=== PATIENT | male | born 1975 | race Caucasian/White ===

== ENCOUNTER → 2018-01-11 13:53 | Outpatient (CLI) | payer OTHER, SELFPAY ==
[2018-01-11 18:41] LABS: Basophils % 0.5 % (0.1-2.0); Eosinophils # 0.1 K/mm3 (0.0-0.4); Eosinophils % 1.4 % (0.1-12.0); Hematocrit 50.5 % (42.0-52.0); Lymphocytes # 2.3 K/mm3 (0.7-4.5); Lymphocytes % 27.9 K/mm3 (10-50); Mean Corpuscular HGB Conc 33.6 g/dL (31.8-35.4); Mean Corpuscular Hemoglobin 30.5 pg (27.0-31.2); Mean Corpuscular Volume 90.7 fl (80-94); Mean Platelet Volume 9.3 fl (7.4-10.4); Monocytes # 0.7 K/mm3 (0.1-1.0); Monocytes % 8.1 % (1.7-9.3); Platelet Count 252 K/mm3 (142-424); Red Blood Count 5.56 M/mm3 (4.60-6.20); White Blood Count 8.1 K/mm3 (4.8-10.8)
[2018-01-11 19:03] LABS: Amphetamine/Metha Screen,Urine Negative ng/mL (<1000); Barbiturates Screen,Urine Negative ng/mL (<200); Benzodiazepines Screen,Urine Negative ng/mL (<200); Cannabinoid Screen,Urine Positive ng/mL (<50); Cocaine Screen,Urine Negative ng/mL (<300); Methadone Screen,Urine Negative ng/mL (<300); Opiate Screen,Urine Positive ng/mL (<300); Phencyclidine Screen,Urine Negative ng/mL (<25)
[2018-01-11 19:11] LABS: Alanine Aminotransferase 38 U/L (12-78); Albumin Level 4.3 gm/dL (3.4-5.0); Albumin/Globulin Ratio 1.3 (1.1-1.8); Alkaline Phosphatase 95 U/L (46-116); Anion Gap 13.5 mEq/L (5-15); Aspartate Amino Transferase 20 U/L (15-37); Bilirubin,Total 1.8 mg/dL (0.2-1.0); Blood Urea Nitrogen 11 mg/dL (7-18); Calcium 9.2 mg/dL (8.5-10.1); Carbon Dioxide 28 mmol/L (21.0-32.0); Chloride 99 mmol/L (98-107); Chol/HDL Ratio 5.8 (1-3.5); Cholesterol 276 mg/dL (140-200); Creatinine,Serum 0.81 mg/dL (0.70-1.30); Estimated Glomerular Filt Rate 105 ml/min (>60); GFR (African American) 127 ML/MIN (>60); Globulin 3.4 gm/dl (1.3-3.2); Glucose 94 mg/dL (74-106); HDL Cholesterol 48 mg/dL (27-67); LDL Cholesterol 194 mg/dL (0-130); Potassium 4.5 mmoL/L (3.5-5.1); Sodium 136 mmol/L (136-145); T4 (Thyroxine) 7.9 ug/dl (4.7-13.3); Thyroid Stimulating Hormone 0.89 uIU/ml (0.358-3.740); Total Protein,Serum 7.7 gm/dL (6.4-8.2); Triglycerides 168 mg/dL (30-200); VLDL Cholesterol 34 mg/dL (0-40)
== END ==
PROVIDERS: Visit Provider Emergency Medicine
DX: Z79.899 Other long term (current) drug therapy (principal); I10 Essential (primary) hypertension
CPT/HCPCS: 80053; 80061; 80305; 84436; 84443; 85025

== ENCOUNTER → 2018-02-12 17:56 | Outpatient (CLI) | payer OTHER, SELFPAY ==
[2018-02-12 18:28] LABS: Amphetamine/Metha Screen,Urine Negative ng/mL (<1000); Barbiturates Screen,Urine Negative ng/mL (<200); Benzodiazepines Screen,Urine Negative ng/mL (<200); Cannabinoid Screen,Urine Positive ng/mL (<50); Cocaine Screen,Urine Negative ng/mL (<300); Methadone Screen,Urine Negative ng/mL (<300); Opiate Screen,Urine Negative ng/mL (<300); Phencyclidine Screen,Urine Negative ng/mL (<25)
== END ==
PROVIDERS: Visit Provider Nurse Practitioner Family
DX: Z79.899 Other long term (current) drug therapy (principal)
CPT/HCPCS: 80305

== ENCOUNTER → 2018-03-13 18:39 | Outpatient (CLI) | payer OTHER, SELFPAY ==
[2018-03-13 22:38] LABS: Amphetamine/Metha Screen,Urine Negative ng/mL (<1000); Barbiturates Screen,Urine Negative ng/mL (<200); Benzodiazepines Screen,Urine Negative ng/mL (<200); Cannabinoid Screen,Urine Positive ng/mL (<50); Cocaine Screen,Urine Negative ng/mL (<300); Methadone Screen,Urine Negative ng/mL (<300); Opiate Screen,Urine Positive ng/mL (<300); Phencyclidine Screen,Urine Negative ng/mL (<25)
== END ==
PROVIDERS: Visit Provider Emergency Medicine
DX: Z79.899 Other long term (current) drug therapy (principal)
CPT/HCPCS: 80305

== ENCOUNTER → 2018-03-14 10:33 | Outpatient (CLI) | payer OTHER, SELFPAY ==
--- NOTE | 2018-03-14 10:40 | MR_ITS ---
MR lumbar spine wo con, MR 3-d myelogram/MRCP HISTORY: PT states low back pain. Bilateral leg pain. ITS.REASON: back pain ORDERING PHYSICIAN: Alexandre Pozo MD PATIENT AGE: 42 years Comparison: MRI 03/13/16 TECHNIQUE: Standard multiplanar multiecho sequences are performed without contrast. 3-D MIP and myelographic images are also rendered and reviewed FINDINGS: There is normal alignment. The spinal cord ends at the L1-L2 level. T12-L1 and L1-L2 have an unremarkable appearance. L2-L3: Mild disc desiccation with mild facet and ligamentum flavum hypertrophy with mild bilateral lateral recess and foraminal narrowing slightly greater on the left. Not significant change. L3-L4: Mild degenerative disc disease with bulging disc along with facet and ligamentum flavum hypertrophy with bilateral lateral recess narrowing and mild to moderate bilateral foraminal narrowing not significant change. There is mild central transverse canal stenosis once again noted. L4-L5: Degenerative disc disease with bulging disc and minimal broad-based central disc protrusion slightly eccentric toward the right. The size is similar to the previous exam. The previously noted increased T2 signal is less on today's exam. There is facet and ligamentum flavum hypertrophy also with bilateral lateral recess narrowing and [id number] bilateral foraminal narrowing not significantly changed L5-S1: Degenerative disc disease with type II endplate changes and irregularity of the endplates. There is a focal central disc protrusion/disc osteophyte complex abutting the medial aspect of both S1 nerve roots. This is slightly eccentric toward the left. This did have a similar appearance on the previous exam. There are facet and ligamentum flavum hypertrophy with bilateral foraminal narrowing. IMPRESSION: 1. Overall no significant change compared to the previous exam in the multilevel lumbar spondylosis with degenerative disc disease, disc bulges, and facet and ligamentum flavum hypertrophy. 2. L3-L4: Mild degenerative disc disease with bulging disc along with facet and ligamentum flavum hypertrophy with bilateral lateral recess narrowing and mild to moderate bilateral foraminal narrowing not significant change. There is mild central transverse canal stenosis once again noted. 3. L4-L5: Degenerative disc disease with bulging disc and minimal broad-based central disc protrusion slightly eccentric toward the right. The size is similar to the previous exam. The previously noted increased T2 signal is less on today's exam. There is facet and ligamentum flavum hypertrophy also with bilateral lateral recess narrowing and [id number] bilateral foraminal narrowing not significantly changed. 4. L5-S1: Degenerative disc disease with type II endplate changes and irregularity of the endplates. There is a focal central disc protrusion/disc osteophyte complex abutting the medial aspect of both S1 nerve roots. This is slightly eccentric toward the left. This did have a similar appearance on the previous exam. There are facet and ligamentum flavum hypertrophy with bilateral foraminal narrowing.
--- NOTE | 2018-03-14 10:41 | MR_ITS ---
MR lumbar spine wo con, MR 3-d myelogram/MRCP HISTORY: PT states low back pain. Bilateral leg pain. ITS.REASON: back pain ORDERING PHYSICIAN: Alexandre Pozo MD PATIENT AGE: 42 years Comparison: MRI 03/13/16 TECHNIQUE: Standard multiplanar multiecho sequences are performed without contrast. 3-D MIP and myelographic images are also rendered and reviewed FINDINGS: There is normal alignment. The spinal cord ends at the L1-L2 level. T12-L1 and L1-L2 have an unremarkable appearance. L2-L3: Mild disc desiccation with mild facet and ligamentum flavum hypertrophy with mild bilateral lateral recess and foraminal narrowing slightly greater on the left. Not significant change. L3-L4: Mild degenerative disc disease with bulging disc along with facet and ligamentum flavum hypertrophy with bilateral lateral recess narrowing and mild to moderate bilateral foraminal narrowing not significant change. There is mild central transverse canal stenosis once again noted. L4-L5: Degenerative disc disease with bulging disc and minimal broad-based central disc protrusion slightly eccentric toward the right. The size is similar to the previous exam. The previously noted increased T2 signal is less on today's exam. There is facet and ligamentum flavum hypertrophy also with bilateral lateral recess narrowing and [id number] bilateral foraminal narrowing not significantly changed L5-S1: Degenerative disc disease with type II endplate changes and irregularity of the endplates. There is a focal central disc protrusion/disc osteophyte complex abutting the medial aspect of both S1 nerve roots. This is slightly eccentric toward the left. This did have a similar appearance on the previous exam. There are facet and ligamentum flavum hypertrophy with bilateral foraminal narrowing. IMPRESSION: 1. Overall no significant change compared to the previous exam in the multilevel lumbar spondylosis with degenerative disc disease, disc bulges, and facet and ligamentum flavum hypertrophy. 2. L3-L4: Mild degenerative disc disease with bulging disc along with facet and ligamentum flavum hypertrophy with bilateral lateral recess narrowing and mild to moderate bilateral foraminal narrowing not significant change. There is mild central transverse canal stenosis once again noted. 3. L4-L5: Degenerative disc disease with bulging disc and minimal broad-based central disc protrusion slightly eccentric toward the right. The size is similar to the previous exam. The previously noted increased T2 signal is less on today's exam. There is facet and ligamentum flavum hypertrophy also with bilateral lateral recess narrowing and [id number] bilateral foraminal narrowing not significantly changed. 4. L5-S1: Degenerative disc disease with type II endplate changes and irregularity of the endplates. There is a focal central disc protrusion/disc osteophyte complex abutting the medial aspect of both S1 nerve roots. This is slightly eccentric toward the left. This did have a similar appearance on the previous exam. There are facet and ligamentum flavum hypertrophy with bilateral foraminal narrowing.
== END ==
PROVIDERS: PCP Emergency Medicine; Visit Provider Emergency Medicine
DX: M54.16 Radiculopathy, lumbar region (principal)
CPT/HCPCS: 72148; 76376

== ENCOUNTER → 2018-04-12 19:18 | Outpatient (CLI) | payer OTHER, SELFPAY ==
[2018-04-12 20:40] LABS: Amphetamine/Metha Screen,Urine Negative ng/mL (<1000); Barbiturates Screen,Urine Negative ng/mL (<200); Benzodiazepines Screen,Urine Negative ng/mL (<200); Cannabinoid Screen,Urine Positive ng/mL (<50); Cocaine Screen,Urine Negative ng/mL (<300); Methadone Screen,Urine Negative ng/mL (<300); Opiate Screen,Urine Positive ng/mL (<300); Phencyclidine Screen,Urine Negative ng/mL (<25)
== END ==
PROVIDERS: Visit Provider Emergency Medicine
DX: Z79.899 Other long term (current) drug therapy (principal)
CPT/HCPCS: 80305

== ENCOUNTER → 2018-06-25 14:07 | Outpatient (CLI) | payer OTHER, SELFPAY ==
[2018-06-25 15:19] LABS: Amphetamine/Metha Screen,Urine Negative ng/mL (<1000); Barbiturates Screen,Urine Negative ng/mL (<200); Benzodiazepines Screen,Urine Negative ng/mL (<200); Cannabinoid Screen,Urine Positive ng/mL (<50); Cocaine Screen,Urine Negative ng/mL (<300); Methadone Screen,Urine Negative ng/mL (<300); Opiate Screen,Urine Negative ng/mL (<300); Phencyclidine Screen,Urine Negative ng/mL (<25)
== END ==
LOC: LAB 14:08 → LAB.DROPOF 14:19
PROVIDERS: Visit Provider Nurse Practitioner Family
DX: Z79.899 Other long term (current) drug therapy (principal)
CPT/HCPCS: 80305

== ENCOUNTER → 2018-07-30 13:49 | Outpatient (CLI) | payer OTHER, SELFPAY ==
[2018-07-30 15:30] LABS: Amphetamine/Metha Screen,Urine Negative ng/mL (<1000); Barbiturates Screen,Urine Negative ng/mL (<200); Benzodiazepines Screen,Urine Negative ng/mL (<200); Cannabinoid Screen,Urine Positive ng/mL (<50); Cocaine Screen,Urine Negative ng/mL (<300); Methadone Screen,Urine Negative ng/mL (<300); Opiate Screen,Urine Negative ng/mL (<300); Phencyclidine Screen,Urine Negative ng/mL (<25)
== END ==
PROVIDERS: Visit Provider Nurse Practitioner Family
DX: Z79.899 Other long term (current) drug therapy (principal)
CPT/HCPCS: 80305

== ENCOUNTER → 2018-08-28 13:59 | Outpatient (CLI) | payer OTHER, SELFPAY ==
[2018-08-28 15:06] LABS: Amphetamine/Metha Screen,Urine Negative ng/mL (<1000); Barbiturates Screen,Urine Negative ng/mL (<200); Benzodiazepines Screen,Urine Negative ng/mL (<200); Cannabinoid Screen,Urine Positive ng/mL (<50); Cocaine Screen,Urine Negative ng/mL (<300); Methadone Screen,Urine Negative ng/mL (<300); Opiate Screen,Urine Negative ng/mL (<300); Phencyclidine Screen,Urine Negative ng/mL (<25)
[2018-09-06 06:17] LABS: Opiates Negative ng/mL (Cutoff=100)
== END ==
PROVIDERS: Visit Provider Emergency Medicine
DX: Z79.899 Other long term (current) drug therapy (principal)
CPT/HCPCS: 80305; 80361; G0480

== ENCOUNTER 2021-03-14 15:48 | Emergency (ER) | payer MEDICAID, SELFPAY ==
--- NOTE | 2021-03-14 15:58 | XR_ITS ---
PROCEDURE INFORMATION: Exam: XR Right Elbow Exam date and time: 03/14/2021 3:58 PM Age: 45 years old Clinical indication: Injury or trauma; Fall; Work related; Blunt trauma (contusions or hematomas); Patient HX: Patient fell at [employer] where he works. Right elbow pain. TECHNIQUE: Imaging protocol: XR Right elbow. Views: 3 or more views. COMPARISON: CR XR HUMERUS RT 03/14/2021 4:09 PM FINDINGS: Bones/joints: No fracture. No malalignment. Mild degenerative changes noted. There is a spur of the posterior olecranon. Soft tissues: Posterior soft tissue swelling noted. Thin curvilinear structure projects over the proximal ulnar shaft is favored to be external to the patient. IMPRESSION: No evidence of acute osseous injury
--- NOTE | 2021-03-14 15:58 | XR_ITS ---
PROCEDURE INFORMATION: Exam: XR Right Humerus Exam date and time: 03/14/2021 3:58 PM Age: 45 years old Clinical indication: Injury or trauma; Fall; Work related; Bleeding/hemorrhage; Arm, upper; Injury details: Patient fell at [employer] where he works. Right humerus pain. TECHNIQUE: Imaging protocol: XR Right humerus. Views: 2 or more views. COMPARISON: No relevant prior studies available. FINDINGS: Bones/joints: No fracture. No malalignment. Mild degenerative changes in the AC joint. Soft tissues: Normal. IMPRESSION: No acute findings.
--- NOTE | 2021-03-14 15:58 | XR_ITS ---
PROCEDURE INFORMATION: Exam: XR Right Forearm Exam date and time: 03/14/2021 3:58 PM Age: 45 years old Clinical indication: Injury or trauma; Fall; Work related; Blunt trauma (contusions or hematomas); Arm, lower; Injury details: Patient fell at [employer] injuring his right forearm. ; Additional info: Pain TECHNIQUE: Imaging protocol: XR Right forearm. Views: 2 views. COMPARISON: CR XR ELBOW RT MIN 3V 03/14/2021 4:11 PM FINDINGS: Bones/joints: No fracture. No malalignment. Mild degenerative changes noted. There is a spur of the posterior olecranon. Soft tissues: Posterior soft tissue swelling noted. Thin curvilinear structure projects over the proximal ulnar shaft is favored to be external to the patient. IMPRESSION: No evidence of acute osseous injury
--- NOTE | 2021-03-14 18:23 | HMH.EDUTC ---
[facility] [place] Clinical Impression: Right forearm pain, Pain in right upper arm Fall Qualifiers: Encounter type: initial encounter Qualified Code(s): W19.XXXA - Unspecified fall, initial encounter Contusion of right elbow Qualifiers: Encounter type: initial encounter Qualified Code(s): S50.01XA - Contusion of right elbow, initial encounter Disposition: Home, Self-Care Condition on Discharge: Good Instructions: How to Use a Sling, Contusion, Elbow Sprain Additional Instructions: Rest the extremity, apply ice for 15 minutes as tolerated three or four times per day, Wear the wrap for compression, Elevate the extremity as tolerated while you are resting. Take ibuprofen for pain. I sent in a prescription to your pharmacy. Follow up with Dr. Powell (orthopedics). I put in a referral but you need to call his office and schedule an appointment. Follow up with your regular doctor. GO TO THE ER FOR ANY WORSENING SYMPTOMS Prescriptions: Ibuprofen [Ibuprofen 800mg Tablet] 800 mg PO Q8HP PRN #30 tab PRN Reason: Moderate Pain Transmission Status: Received by [facility] Referrals: Alexandre Pozo MD [Primary Care Provider] - Dante Powell MD [Staff Physician] - Forms: Work/School Release Time of Disposition: 18:36 Medical Decision Making - Medical Records Medical records reviewed: No: I reviewed the patient's medical records. - Ray Inquiry Pt receiving controlled substance: No Vital Signs: 03/14/21 18:43 03/14/21 18:50 Temperature 98.7 F 98.7 F Temperature Source Oral Pulse Rate 81 Pulse Rate [Left] 81 Respiratory Rate 18 18 Blood Pressure 160/107 H Blood Pressure [Right Arm] 160/107 H Blood Pressure Mean [Right Arm] 124 02 Sat by Pulse Oximetry 100 - Radiology Data #1 Image(s): Elbow Image Reviewed: Yes I reviewed the patient's radiology image, Yes I have reviewed radiologist's interpretation Preliminary Findings: No Fracture Seen PROCEDURE INFORMATION: Exam: XR Right Elbow Exam date and time: 03/14/2021 3:58 PM Age: 45 years old Clinical indication: Injury or trauma; Fall; Work related; Blunt trauma (contusions or hematomas); Patient HX: Patient fell at [employer] where he works. Right elbow pain. TECHNIQUE: Imaging protocol: XR Right elbow. Views: 3 or more views. COMPARISON: CR XR HUMERUS RT 03/14/2021 4:09 PM FINDINGS: Bones/joints: No fracture. No malalignment. Mild degenerative changes noted. There is a spur of the posterior olecranon. Soft tissues: Posterior soft tissue swelling noted. Thin curvilinear structure projects over the proximal ulnar shaft is favored to be external to the patient. IMPRESSION: No evidence of acute osseous injury #2 Image(s): Humerus Image Reviewed: Yes I reviewed the patient's radiology image, Yes I have reviewed radiologist's interpretation Preliminary Findings: No Fracture Seen PROCEDURE INFORMATION: Exam: XR Right Humerus Exam date and time: 03/14/2021 3:58 PM Age: 45 years old Clinical indication: Injury or trauma; Fall; Work related; Bleeding/hemorrhage; Arm, upper; Injury details: Patient fell at [facility] where he works. Right humerus pain. TECHNIQUE: Imaging protocol: XR Right humerus. Views: 2 or more views. COMPARISON: No relevant prior studies available. FINDINGS: Bones/joints: No fracture. No malalignment. Mild degenerative changes in the AC joint. Soft tissues: Normal. IMPRESSION: No acute findings. #3 Image(s): Forearm Image Reviewed: Yes I reviewed the patient's radiology image, Yes I have reviewed radiologist's interpretation Preliminary Findings: No Fracture Seen PROCEDURE INFORMATION: Exam: XR Right Forearm Exam date and time: 03/14/2021 3:58 PM Age: 45 years old
[2021-03-14 18:43] VITALS: BP 160/107; PULSE 81; RESP 18; TEMP 37.1; O2SAT 100; BMI 31.0
[2021-03-14 18:50] VITALS: BP 160/107; PULSE 81; RESP 18; TEMP 37.1
== END 2021-03-14 18:51 | disposition home or self-care (01) ==
PROVIDERS: Emergency Provider Nurse Practitioner Family; PCP Emergency Medicine
DX: S50.01XA Contusion of right elbow, initial encounter (principal); W01.0XXA Fall on same level from slipping, tripping and stumbling without subsequent striking against object, initial encounter; Y92.012 Bathroom of single-family (private) house as the place of occurrence of the external cause; E78.5 Hyperlipidemia, unspecified; I10 Essential (primary) hypertension; F17.210 Nicotine dependence, cigarettes, uncomplicated
CPT/HCPCS: 73060; 73080; 73090; 99202; G0463

== ENCOUNTER → 2021-03-24 17:24 | Outpatient (CLI) | payer MEDICAID, SELFPAY ==
[2021-03-24 20:26] LABS: Amphetamine/Metha Screen,Urine Negative ng/ml (<1000); Barbiturates Screen,Urine Negative ng/ml (<200)
[2021-03-24 20:27] LABS: Benzodiazepines Screen,Urine Negative ng/ml (<200)
[2021-03-24 20:28] LABS: Cannabinoid Screen,Urine Positive ng/ml (<50); Cocaine Screen,Urine Negative ng/ml (<300)
[2021-03-24 20:29] LABS: Methadone Screen,Urine Negative ng/ml (<300); Opiate Screen,Urine Negative ng/ml (<300)
[2021-03-24 20:30] LABS: Phencyclidine Screen,Urine Negative ng/ml (<25)
== END ==
PROVIDERS: Visit Provider Nurse Practitioner Family
DX: Z02.83 Encounter for blood-alcohol and blood-drug test (principal)
CPT/HCPCS: 80305

== ENCOUNTER → 2021-03-28 09:21 | Outpatient (CLI) | payer MEDICAID, SELFPAY ==
--- NOTE | 2021-03-28 09:21 | US_ITS ---
PROCEDURE: US GALLBLADDER CLINICAL INDICATION: RUQ Pain COMPARISON: No exams were available for comparison FINDINGS: Pancreas: Poorly demonstrated Liver: Unremarkable. There is appropriate direction of blood flow within a non dilated portal vein. Right kidney: Unremarkable appearing. No hydronephrosis. Gallbladder: The gallbladder has numerous stones and sludge filled. The gallbladder wall is slightly prominent at 3-4 mm. There is a question of minimal amount of pericholecystic fluid versus gallbladder wall edema. Common bile duct is distended at 10 mm. IMPRESSION: Cholelithiasis with gallbladder sludge with mild gallbladder wall thickening and questionable minimal pericholecystic fluid. Dilated common bile duct at 10 mm. Dictated by: Wander Boyd MD 03/28/2021 14:54 Wander Boyd MD in [place] 03/28/2021 14:54
== END ==
PROVIDERS: PCP Emergency Medicine; Visit Provider Nurse Practitioner Family
DX: R10.11 Right upper quadrant pain (principal)
CPT/HCPCS: 76705